=== PATIENT | male | born 1955 | race Caucasian/White ===

== ENCOUNTER 2018-01-21 00:30 | Inpatient (IN) ==
[2018-01-21] MEDS ORDERED: SOLU-Medrol 125 MG VIAL ONE (00:47)
[2018-01-21] MEDS ORDERED: DUONEB 0.5 MG/3 MG ONE (00:48)
[2018-01-21] MEDS ORDERED: SOLU-Medrol 125 MG VIAL IVP ONE ×2 (00:48→00:49)
[2018-01-21] MEDS ORDERED: DUONEB 0.5 MG/3 MG NEB ONE ×2 (00:49→00:51)
[2018-01-21] MEDS ORDERED: ROCEPHIN VIAL 1 GRAM IVP ONE (00:52)
--- NOTE | 2018-01-21 01:04 | DR.SOBA ---
HPI Time Seen Time Seen by Provider: 01/21/18 00:49 Primary Care Physician Primary Care Physician: NARESH HPI Comment HPI Comment: INCREASING SOB AND FEVER WITH COUGH TIMES 4 DAYS WORSE TODAY. Complaints Chief Complaint Doctors Comments: INCREASING SOB TIMES 4 DAYS. Chief Complaint:: SOB GOTTEN WORSE Reviewed Nurses Notes Reviewed: Yes Source History Provided: Patient and Family Member Mode of Arrival Mode of Arrival: Ambulatory Timing Onset of Chief Complaint: 01/17/18 Duration Duration: Days Context Onset:: At Rest and With Light Exertion PE Risk Factors:: None History of:: COPD Currently on:: Inhaled Bronchodilators Prehospital Care:: Inhaled B2 Modifying Factors Worsens:: Exertion and Lying Flat Improves:: Inhaler Associated Signs and Symptoms Associated Signs and Symptoms: Wheeze If Chest Pain Quality: Other (TIGHTNESS.) Location: Substernal If Cough Cough: Productive PMH PMH Past Medical History: Yes Past Medical History: COPD and Hypertension Past Surgical History: Yes Surgical History: Angioplasty/Stents Family History History of Family Medical Conditions: Yes Family Medical History: Hypertension Social History Type of Tobacco Use: Cigarettes Does any household member use tobacco: Yes Alcohol Use: None Do you use any recreational Drugs:: No Lives With: Family Lives Where: Home infectious screening In the last 2 months have you had wt loss of >10#?: NO Have you had fever, night sweats or hemotysis?: No Have you traveled outside the country in the last 6 months?: No Isolation: Standard ROS Review of Systems Constitutional: Fever, Weakness and Fatigue Eyes: No Symptoms Reported ENTM: No Symptoms Reported Respiratoy: Moist Cough and Short of Breath Cardiovascular: Chest Pain (TIGHTNESS.) Gastrointestinal/Abdominal: No Symptoms Reported Neurological: No Symptoms Reported Musculoskeletal: No Symptoms Reported Integumentary: No Symptoms Reported Hematologic/Lymphatic: No Symptoms Reported Endocrine: No Symptoms Reported Psychiatric: No Symptoms Reported All Other Systems: Reviewed and Negative PE Vital Signs Vitals: Temperature 99.7 F Pulse Rate [Left] 99 Pulse Rate 106 Respiratory Rate 26 Blood Pressure [Left Arm] 154/70 Blood Pressure 164/62 O2 Sat by Pulse Oximetry 93 General Limitations: No Limitations General Appearance: Alert and In Distress Head Head Exam: Normal Inspection, Atraumatic and Normocephalic Eyes Eye exam: PERRL and EOMI; negative Scleral Icterus and Conjunctival Injection ENT ENT Exam: Normal Exam, Normal Oropharynx, Normal External Ear Exam, Mucous Membranes Moist and TM's Normal Bilaterally Neck Neck Exam: Normal Inspection and Trachea Midline; negative Tenderness, Meningismus and Lymphadenopathy Chest Chest Inspection: Symmetric Chest Wall Rise Respiratory Respiratory Exam: Respiratory Distress Respiratory Exam: Bilateral: Wheezing and Bilateral: Rhonchi, Upper: Wheezing and Upper: Rhonchi and Lower: Wheezing and Lower: Rhonchi Cardiovascular Cardiovascular Exam: Regular Rate and Normal Rhythm Abdominal Exam Abdominal Exam: Normal Inspection, Normal Bowel Sounds and Soft; negative Tenderness Back Back Exam: Normal Inspection Neurologic Neurological Exam: Alert and Oriented X3; negative Motor Sensory Deficit Psychiatric Psychiatric Exam: Anxious Skin Skin Exam: Dry MDM Additional Information Obtained Additional Information Obtained From: Family Differential Diagnosis Differential Diagnosis: Bronchitis, CHF, COPD, Dysrhythmia, Hypertensive Emergency, Mycardial Infarction, Pneumonia, Pneumothorax, Respiratory Failure and Respiratory Insufficiency COURSE Treatment Treatment: SEE ORDERS. Consultation Consultation Comments: DISCUSS PATIENT WITH DR. INFANTE. HE WILL ADMIT PATIENT. Education/Counseling Education/Counseling: Patient and Family Educated On: Diagnosis ROR Labs Reviewed Laboratory Results Reviewed?: Yes Result Diagrams: 01/22/18 03:00 01/22/18 03:00 Laboratory: 01/21/18 01:33 Blood Blood Culture - Final 01/21/18 01:00 Blood Blood Culture - Final 01/21/18 01:00 Sputum - Expectorated Sputum Sputum Culture - Final Enterobacter Cloacae 01/21/18 01:00 Sputum - Expectorated Sputum - Final WBC 12.6 X10^3/uL (3.6-10.0) H 01/22/18 03:00 RBC 5.35 X10^6/uL (4.7-6.0) 01/22/18 03:00 Hgb 16.7 g/dL (13.5-18.0) 01/22/18 03:00 Hct 49.0 % (42.0-54.0) 01/22/18 03:00 MCV 91.6 fL (80.0-100.0) 01/22/18 03:00 MCH 31.2 pg (27.0-34.0) 01/22/18 03:00 MCHC 34.1 g/dL (33.0-35.0) 01/22/18 03:00 RDW 14.3 % (11.6-16.5) 01/22/18 03:00 Plt Count 209 X10^3/uL (150.0-450.0) 01/22/18 03:00 MPV 7.7 fL (7.4-11.0) 01/22/18 03:00 Neut % (Auto) 88.4 % (42.0-75.0) H 01/22/18 03:00 Lymph % (Auto) 5.8 % (21.0-51.0) L 01/22/18 03:00 [place] % (Auto) 5.6 % (0.0-13.0) 01/22/18 03:00 Eos % (Auto) 0.0 % (0.9-2.9) L 01/22/18 03:00 Baso % (Auto) 0.2 % (0.2-1.0) 01/22/18 03:00 Neut # (Auto) 11.1 x10^3/uL (2.2-4.8) H 01/22/18 03:00 Lymph # (Auto) 0.7 X10^3/uL (1.3-2.9) L 01/22/18 03:00 [place] # (Auto) 0.7 x10^3/uL (0.3-0.8) 01/22/18 03:00 Eos # (Auto) 0.0 x10^3/uL (0.0-0.2) 01/22/18 03:00 Baso # (Auto) 0.0 X10^3/uL (0.0-0.1) 01/22/18 03:00 Absolute Nucleated RBC 0.0 /100WBC 01/22/18 03:00 APTT 23.4 SECONDS (22.9-36.5) 01/22/18 08:37 PTT Comment - 01/22/18 08:37 Sodium 140 mmol/L (136-145) 01/22/18 03:00 Corrected Sodium 143 mmol/L (136-145) 01/22/18 03:00 Potassium 3.8 mmol/L (3.5-5.1) 01/22/18 03:00 Chloride 105 mmol/L (98-107) 01/22/18 03:00 Carbon Dioxide 27.6 mmol/L (21-32) 01/22/18 03:00 BUN 20 mg/dL (7-18) H 01/22/18 03:00 Creatinine 1.08 mg/dL (0.70-1.30) 01/22/18 03:00 Est GFR (MDRD) Af Amer > 60 (>60) 01/22/18 03:00 Est GFR (MDRD) Non-Af > 60 (>60) 01/22/18 03:00 Glucose 214 mg/dL (65-99) H 01/22/18 03:00 Lactic Acid 1.1 mmol/L (0.4-2.0) 01/21/18 01:33 Calcium 7.9 mg/dL (8.5-10.1) L 01/22/18 03:00 Corrected Calcium 8.7 mg/dL (8.5-10.1) 01/22/18 03:00 Magnesium 2.0 mg/dL (1.7-2.9) 01/21/18 01:00 Total Bilirubin 0.30 mg/dL (0.2-1.0) 01/22/18 03:00 AST 26 Units/L (15-37) 01/22/18 03:00 ALT 91 Units/L (12-78) H 01/22/18 03:00 Alkaline Phosphatase 64 Units/L (46-116) 01/22/18 03:00 Creatine Kinase 98 Units/L (39-308) 01/22/18 08:37 CK-MB (CK-2) 6.7 ng/mL (0-4.0) H* 01/22/18 08:37 CK/CKMB % Calc 6.8 % (<4) 01/22/18 08:37 Troponin I 0.88 ng/mL (0-1.5) 01/22/18 08:37 B-Natriuretic Peptide 154 pg/mL (0-79) H 01/21/18 01:00 Total Protein 6.0 g/dL (6.4-8.2) L 01/22/18 03:00 Albumin 3.0 g/dL (3.4-5.0) L 01/22/18 03:00 Globulin 3.0 g/dL (2.5-4.5) 01/22/18 03:00 Albumin/Globulin Ratio 1.0 Ratio (1.1-2.1) L 01/22/18 03:00 Specimen Type Clean catch urine 01/21/18 05:29 Urine Color Yellow (YELLOW) 01/21/18 05:29 Urine Appearance Slightly hazy (CLEAR) 01/21/18 05:29 Urine pH 5.0 (5.0 - 8.0) 01/21/18 05:29 Ur Specific [place] 1.020 (1.000-1.030) 01/21/18 05:29 Urine Protein 2+ (NEGATIVE) 01/21/18 05:29 Urine Glucose (UA) 3+ (NEGATIVE) 01/21/18 05:29 Urine Ketones Negative (NEGATIVE) 01/21/18 05:29 Urine Occult Blood 2+ (NEGATIVE) 01/21/18 05:29 Urine Nitrite Negative (NEGATIVE) 01/21/18 05:29 Urine Bilirubin Negative (NEGATIVE) 01/21/18 05:29 Urine Urobilinogen Normal (NORMAL) 01/21/18 05:29 Ur Leukocyte Esterase Negative (NEGATIVE) 01/21/18 05:29 Urine RBC 0-2 /HPF (NONE SEEN) 01/21/18 05:29 Urine WBC 0-2 /HPF (NONE SEEN) 01/21/18 05:29 Ur Squamous Epith Cells Rare /HPF (NEGATIVE) 01/21/18 05:29 Urine Bacteria Trace /HPF (NEGATIVE) 01/21/18 05:29 Hyaline Casts Rare /LPF (NEGATIVE) 01/21/18 05:29 Ur Culture Indicated? No/not indicated 01/21/18 05:29 XRAY XRAY Interpreted by: Radiologist XRAY Findings: REPORT DISCUSS WITH PATIENT. EKG Rate: 89 Rhythm: NSR Block: RBBB Hypertrophy: LAE and LVH
[2018-01-21] MEDS ORDERED: ROCEPHIN VIAL 1 GRAM ONE (01:06)
[2018-01-21 01:15] LABS: BASOPHILS # (AUTO) 0.1 X10^3/uL (0.0-0.1); BASOPHILS % (AUTO) 0.5 % (0.2-1.0); EOSINOPHILS # (AUTO) 0.1 x10^3/uL (0.0-0.2); EOSINOPHILS % (AUTO) 1.4 % (0.9-2.9); HEMATOCRIT 52.5 % (42.0-54.0); LYMPHOCYTES # (AUTO) 1.1 X10^3/uL (1.3-2.9); LYMPHOCYTES % (AUTO) 11.5 % (21.0-51.0); MEAN CORPUSCULAR HEMOGLOBIN 31.8 pg (27.0-34.0); MEAN CORPUSCULAR HGB CONC 34.3 g/dL (33.0-35.0); MEAN CORPUSCULAR VOLUME 92.8 fL (80.0-100.0); MEAN PLATELET VOLUME 7.4 fL (7.4-11.0); MONOCYTES # (AUTO) 1.1 x10^3/uL (0.3-0.8); MONOCYTES % (AUTO) 11.4 % (0.0-13.0); NEUTROPHILS # (AUTO) 7.2 x10^3/uL (2.2-4.8); NEUTROPHILS % (AUTO) 75.2 % (42.0-75.0); PLATELET COUNT 199 X10^3/uL (150.0-450.0); RED BLOOD COUNT 5.65 X10^6/uL (4.7-6.0); RED CELL DISTRIBUTION WIDTH 14.3 % (11.6-16.5); WHITE BLOOD COUNT 9.6 X10^3/uL (3.6-10.0)
[2018-01-21 01:36] LABS: BLOOD UREA NITROGEN 23 mg/dL (7-18); CALCIUM 8.2 mg/dL (8.5-10.1); CARBON DIOXIDE 28.6 mmol/L (21-32); CHLORIDE 104 mmol/L (98-107); COR NA(FOR HYPERGLY) 140 mmol/L (136-145); CREATININE 1.12 mg/dL (0.70-1.30); SODIUM 139 mmol/L (136-145); TROPONIN I 0.05 ng/mL (0-1.5); eGFR NON BLACK RACES > 60 (>60)
[2018-01-21 01:43] LABS: B-TYPE NATRIURETIC PEPTIDE 154 pg/mL (0-79)
[2018-01-21 01:52] LABS: ALANINE AMINOTRANSFERASE 157 Units/L (12-78); ALBUMIN 3.5 g/dL (3.4-5.0); ALKALINE PHOSPHATASE 72 Units/L (46-116); ASPARTATE AMINO TRANSFERASE 167 Units/L (15-37); CKMB % 1.4 % (<4); CREATINE KINASE 207 Units/L (39-308); CREATINE KINASE MB 2.8 ng/mL (0-4.0); TOTAL PROTEIN 6.7 g/dL (6.4-8.2)
[2018-01-21 03:44] LABS: CKMB % 1.5 % (<4); CREATINE KINASE MB 2.9 ng/mL (0-4.0); TROPONIN I 0.08 ng/mL (0-1.5)
[2018-01-21] MEDS: NS 1000 ML 1,000 ML IV SCH ×2 (05:05→20:47)
[2018-01-21] MEDS ORDERED: NICOTINE PATCH TD ONE (05:11)
[2018-01-21] MEDS: NICOTINE PATCH TD SCH ×2 (05:18→08:57)
[2018-01-21] MEDS: LEVAQUIN PREMIX IV 750 MG 750 MG/150 ML BAG IV SCH (05:18)
[2018-01-21 05:21] VITALS: BMI 29.9
[2018-01-21] MEDS: DUONEB 0.5 MG/3 MG NEB SCH ×5 (05:35→21:37)
[2018-01-21 06:13] LABS: BILIRUBIN,URINE NEGATIVE (NEGATIVE); BLOOD/HEMOGLOBIN,URINE 2+ (NEGATIVE); GLUCOSE, URINE 3+ (NEGATIVE); KETONES,URINE NEGATIVE (NEGATIVE); LEUKOCYTE ESTERASE ,URINE NEGATIVE (NEGATIVE); NITRITES,URINE NEGATIVE (NEGATIVE); PROTEIN,URINE 2+ (NEGATIVE); UROBILINOGEN,URINE NORMAL (NORMAL)
[2018-01-21 06:20] LABS: APPEARANCE,URINE SLIGHTLY HAZY (CLEAR); BACTERIA,URINE TRACE /HPF (NEGATIVE); COLOR,URINE YELLOW (YELLOW); HYALINE CASTS, URINE RARE /LPF (NEGATIVE); RBC,URINE 0-2 /HPF (NONE SEEN); SQUAMOUS EPITHELIAL CELL,UR RARE /HPF (NEGATIVE)
[2018-01-21] MEDS ORDERED: SOLU-Medrol 40 MG VIAL IVP SCH (08:00)
[2018-01-21] MEDS: ROBITUSSIN DM PO SCH ×4 (08:57→20:47)
[2018-01-21] MEDS: TUSSIONEX PENNKINETIC SUSP PO PRN ×2 (08:57→20:48)
[2018-01-21] MEDS: ASPIRIN EC 81 MG PO SCH (08:57)
[2018-01-21] MEDS ORDERED: ZESTRIL TAB 5 MG PO SCH (09:00)
[2018-01-21 10:47] LABS: CKMB % 2.2 % (<4); TROPONIN I 0.07 ng/mL (0-1.5)
--- NOTE | 2018-01-21 13:58 | DR.H&P ---
H&P - History & Physical for Day of: H&P Date: 01/21/18 - Chief Complaint Chief Complaint: sob, cough, wheezing - History of Present Illness History of Present Illness: 62 WM ER ADMISSION AFTER PRESENTING WITH CO CCC SINCE SATURDAY WITH SUDDEN ONSET OF SEVERE SOB AROUND MIDNIGHT. PT STATES HE HAD ROCEPHIN IM AND DECADRON SHOT ON SATURDAY AND STARTED A ZPAK FOR BRONCHITIS AND CONTINUES WITH COUGH AND WHEEZING. PT STATES HE TOOK HOT SHOWER AND BECAME FOR TIGHT, "COULD NOT CATCH HIS BREATH". PT HAS PMH OF HTN, COPD, CAD, OA. PT HAD CXR IN ER WITH MULTI-FOCAL PNEUMONIA. PT ADMITTED FOR TREATMENT OF ACUTE SHORTNESS OF BREATH, SERIAL CE AND IV ATBS FOR PNEUMONIA - Past Medical History Past Medical History: COPD, Coronary Artery Disease, Hypertension - Past Surgical History Surgical History: AAA Repair - Family History Family Medical History: Hypertension - Social History Does patient currently use any type of tobacco product: Yes Have you used tobacco products in the last 12 months: Yes Type of Tobacco Use: Cigarettes Does any household member use tobacco: Yes Alcohol Use: None Drug Use: None - Medications Home Medications: No Known Drug Allergies Allergy (Verified 01/21/18 00:38) CONTINUE taking the following medications lisinopril 5 mg PO QDAY 01/21/18 [History] - Review of Systems Constitutional: Fever, Chills, Sweats, Weakness Eyes: No Symptoms Reported Respiratory: No Symptoms Reported, Shortness of Breath, Sputum, Wheezing Cardiovascular: Palpitations Gastrointestinal: No Symptoms Reported Genitourinary: No Symptoms Reported Musculoskeletal: No Symptoms Reported Skin: No Symptoms Reported Neurological: No Symptoms Reported - Physical Exam Vital Signs: Temperature 98.6 F Pulse Rate [Left] 89 Pulse Rate 112 Respiratory Rate 22 Blood Pressure [Left Arm] 164/62 Blood Pressure 164/62 O2 Sat by Pulse Oximetry 98 Oriented: Normal Eyes: Normal Nose: Normal Throat: Normal Respiratory: Rhonchi Throughout, Wheezes Throughout Cardiovascular: Tachycardia. negative: Edema : Normal Auscultation: Bowel Sounds: Normal Palpation: Normal Tenderness: Normal Skin: Normal Psychiatric: Anxiety Affect: Anxious Speech Pattern: Clear, Appropriate - Assessment/Plan (1) SOB (shortness of breath) Status: Acute Plan: ADMIT, SERIAL CE AND EKG. CXR ON ADMISSION. IV ATBX, SOLU MEDROL, SUPPLEMENTAL O2. RESP THERAPY, PULMONARY TOILETING. REPEAT AM LABS, VERIFY HOME MEDS, BP CONTROL (2) Pneumonia Status: Acute (3) Hypertension Status: Acute - Allergies Allergies/Adverse Reactions: Allergies Allergy/AdvReac Type Severity Reaction Status Date / Time No Known Drug Allergies Allergy Verified 01/21/18 00:38
[2018-01-21] MEDS: SOLU-Medrol 40 MG VIAL IVP SCH ×2 (14:57→21:12)
[2018-01-21] MEDS ORDERED: XANAX PO PRN (17:19)
[2018-01-21 18:35] LABS: TROPONIN I 0.37 ng/mL (0-1.5)
[2018-01-21 18:43] LABS: CREATINE KINASE MB 4.5 ng/mL (0-4.0)
[2018-01-21] MEDS: NORVASC TAB 5 MG PO SCH (18:46)
[2018-01-21] MEDS ORDERED: NS 100 ML IV + SPIKE MINIBAG* 100 ML IV ONE (19:57)
[2018-01-21] MEDS ORDERED: ROCEPHIN VIAL 1 GRAM IVP SCH (21:00)
[2018-01-21 21:41] LABS: CKMB % 5.5 % (<4); TROPONIN I 0.78 ng/mL (0-1.5)
[2018-01-22] MEDS: DUONEB 0.5 MG/3 MG NEB SCH ×3 (01:21→10:15)
[2018-01-22 03:16] LABS: BASOPHILS % (AUTO) 0.2 % (0.2-1.0); HEMOGLOBIN 16.7 g/dL (13.5-18.0); LYMPHOCYTES # (AUTO) 0.7 X10^3/uL (1.3-2.9); LYMPHOCYTES % (AUTO) 5.8 % (21.0-51.0); MEAN CORPUSCULAR HEMOGLOBIN 31.2 pg (27.0-34.0); MEAN CORPUSCULAR HGB CONC 34.1 g/dL (33.0-35.0); MEAN CORPUSCULAR VOLUME 91.6 fL (80.0-100.0); MEAN PLATELET VOLUME 7.7 fL (7.4-11.0); MONOCYTES # (AUTO) 0.7 x10^3/uL (0.3-0.8); MONOCYTES % (AUTO) 5.6 % (0.0-13.0); NEUTROPHILS # (AUTO) 11.1 x10^3/uL (2.2-4.8); NEUTROPHILS % (AUTO) 88.4 % (42.0-75.0); PLATELET COUNT 209 X10^3/uL (150.0-450.0); RED BLOOD COUNT 5.35 X10^6/uL (4.7-6.0); RED CELL DISTRIBUTION WIDTH 14.3 % (11.6-16.5); WHITE BLOOD COUNT 12.6 X10^3/uL (3.6-10.0)
[2018-01-22 03:55] LABS: ALANINE AMINOTRANSFERASE 91 Units/L (12-78); ALKALINE PHOSPHATASE 64 Units/L (46-116); ASPARTATE AMINO TRANSFERASE 26 Units/L (15-37); BLOOD UREA NITROGEN 20 mg/dL (7-18); CALCIUM 7.9 mg/dL (8.5-10.1); CARBON DIOXIDE 27.6 mmol/L (21-32); CHLORIDE 105 mmol/L (98-107); CKMB % 8.3 % (<4); COR CA(FOR HYPOALB) 8.7 mg/dL (8.5-10.1); COR NA(FOR HYPERGLY) 143 mmol/L (136-145); CREATINE KINASE 89 Units/L (39-308); CREATININE 1.08 mg/dL (0.70-1.30); SODIUM 140 mmol/L (136-145); TROPONIN I 1.13 ng/mL (0-1.5); eGFR NON BLACK RACES > 60 (>60)
[2018-01-22 04:02] LABS: CREATINE KINASE MB 7.4 ng/mL (0-4.0)
[2018-01-22] MEDS: SOLU-Medrol 40 MG VIAL IVP SCH (06:06)
[2018-01-22] MEDS: NS 1000 ML 1,000 ML IV SCH (06:07)
[2018-01-22] MEDS ORDERED: HEPARIN SODIUM IN D5W 25,000 UNITS/500 ML BAG IV PRN (08:28)
[2018-01-22] MEDS: LEVAQUIN PREMIX IV 750 MG 750 MG/150 ML BAG IV SCH (08:40)
[2018-01-22] MEDS: NORVASC TAB 5 MG PO SCH (08:41)
[2018-01-22] MEDS: ROBITUSSIN DM PO SCH (08:41)
[2018-01-22] MEDS: ASPIRIN EC 81 MG PO SCH (08:41)
[2018-01-22] MEDS: TUSSIONEX PENNKINETIC SUSP PO PRN (08:42)
[2018-01-22] MEDS ORDERED: BROVANA IN SCH (09:00)
[2018-01-22] MEDS ORDERED: ECOTRIN TAB 325 MG PO SCH (09:00)
[2018-01-22] MEDS ORDERED: PLAVIX PO SCH (09:00)
[2018-01-22] MEDS ORDERED: PULMICORT NEB TX 0.5 MG NEB SCH (09:00)
[2018-01-22] MEDS ORDERED: HEPARIN SODIUM INJ 5000 UNITS IVP ONE (09:42)
[2018-01-22 09:50] LABS: CKMB % 6.8 % (<4); TROPONIN I 0.88 ng/mL (0-1.5)
[2018-01-22] MEDS: NICOTINE PATCH TD SCH (09:50)
[2018-01-22 09:52] LABS: CREATINE KINASE MB 6.7 ng/mL (0-4.0)
[2018-01-22 12:14] VITALS: BP 154/70
--- NOTE | 2018-01-24 06:10 | PCM.DCPLAN ---
Discharge Summary - Admission Date Date of Admission: 01/21/18 - Discharge Date Discharge Date: 01/22/18 - Admission Diagnoses (1) Elevated CK-MB level Status: Acute (2) Hypertension Status: Acute (3) Pneumonia Status: Acute (4) SOB (shortness of breath) Status: Acute - Discharge Diagnoses Discharge Diagnosis: SAME ADMISSION DIAGNOSIS - Discharge Medications Discharge Medications: Home Medication List lisinopril 5 mg PO QDAY 01/21/18 [History] Prescriptions: - Hospital Course Vital Signs: Temperature 99.7 F Pulse Rate [Left] 99 Pulse Rate 106 Respiratory Rate 26 Blood Pressure [Left Arm] 154/70 Blood Pressure 164/62 O2 Sat by Pulse Oximetry 93 Latest Lab Results: Laboratory Last Values WBC 12.6 X10^3/uL (3.6-10.0) H 01/22/18 03:00 RBC 5.35 X10^6/uL (4.7-6.0) 01/22/18 03:00 Hgb 16.7 g/dL (13.5-18.0) 01/22/18 03:00 Hct 49.0 % (42.0-54.0) 01/22/18 03:00 MCV 91.6 fL (80.0-100.0) 01/22/18 03:00 MCH 31.2 pg (27.0-34.0) 01/22/18 03:00 MCHC 34.1 g/dL (33.0-35.0) 01/22/18 03:00 RDW 14.3 % (11.6-16.5) 01/22/18 03:00 Plt Count 209 X10^3/uL (150.0-450.0) 01/22/18 03:00 MPV 7.7 fL (7.4-11.0) 01/22/18 03:00 Neut % (Auto) 88.4 % (42.0-75.0) H 01/22/18 03:00 Lymph % (Auto) 5.8 % (21.0-51.0) L 01/22/18 03:00 [place] % (Auto) 5.6 % (0.0-13.0) 01/22/18 03:00 Eos % (Auto) 0.0 % (0.9-2.9) L 01/22/18 03:00 Baso % (Auto) 0.2 % (0.2-1.0) 01/22/18 03:00 Neut # (Auto) 11.1 x10^3/uL (2.2-4.8) H 01/22/18 03:00 Lymph # (Auto) 0.7 X10^3/uL (1.3-2.9) L 01/22/18 03:00 [place] # (Auto) 0.7 x10^3/uL (0.3-0.8) 01/22/18 03:00 Eos # (Auto) 0.0 x10^3/uL (0.0-0.2) 01/22/18 03:00 Baso # (Auto) 0.0 X10^3/uL (0.0-0.1) 01/22/18 03:00 Absolute Nucleated RBC 0.0 /100WBC 01/22/18 03:00 APTT 23.4 SECONDS (22.9-36.5) 01/22/18 08:37 PTT Comment - 01/22/18 08:37 Sodium 140 mmol/L (136-145) 01/22/18 03:00 Corrected Sodium 143 mmol/L (136-145) 01/22/18 03:00 Potassium 3.8 mmol/L (3.5-5.1) 01/22/18 03:00 Chloride 105 mmol/L (98-107) 01/22/18 03:00 Carbon Dioxide 27.6 mmol/L (21-32) 01/22/18 03:00 BUN 20 mg/dL (7-18) H 01/22/18 03:00 Creatinine 1.08 mg/dL (0.70-1.30) 01/22/18 03:00 Est GFR (MDRD) Af Amer > 60 (>60) 01/22/18 03:00 Est GFR (MDRD) Non-Af > 60 (>60) 01/22/18 03:00 Glucose 214 mg/dL (65-99) H 01/22/18 03:00 Lactic Acid 1.1 mmol/L (0.4-2.0) 01/21/18 01:33 Calcium 7.9 mg/dL (8.5-10.1) L 01/22/18 03:00 Corrected Calcium 8.7 mg/dL (8.5-10.1) 01/22/18 03:00 Magnesium 2.0 mg/dL (1.7-2.9) 01/21/18 01:00 Total Bilirubin 0.30 mg/dL (0.2-1.0) 01/22/18 03:00 AST 26 Units/L (15-37) 01/22/18 03:00 ALT 91 Units/L (12-78) H 01/22/18 03:00 Alkaline Phosphatase 64 Units/L (46-116) 01/22/18 03:00 Creatine Kinase 98 Units/L (39-308) 01/22/18 08:37 CK-MB (CK-2) 6.7 ng/mL (0-4.0) H* 01/22/18 08:37 CK/CKMB % Calc 6.8 % (<4) 01/22/18 08:37 Troponin I 0.88 ng/mL (0-1.5) 01/22/18 08:37 B-Natriuretic Peptide 154 pg/mL (0-79) H 01/21/18 01:00 Total Protein 6.0 g/dL (6.4-8.2) L 01/22/18 03:00 Albumin 3.0 g/dL (3.4-5.0) L 01/22/18 03:00 Globulin 3.0 g/dL (2.5-4.5) 01/22/18 03:00 Albumin/Globulin Ratio 1.0 Ratio (1.1-2.1) L 01/22/18 03:00 Specimen Type Clean catch urine 01/21/18 05:29 Urine Color Yellow (YELLOW) 01/21/18 05:29 Urine Appearance Slightly hazy (CLEAR) 01/21/18 05:29 Urine pH 5.0 (5.0 - 8.0) 01/21/18 05:29 Ur Specific [place] 1.020 (1.000-1.030) 01/21/18 05:29 Urine Protein 2+ (NEGATIVE) 01/21/18 05:29 Urine Glucose (UA) 3+ (NEGATIVE) 01/21/18 05:29 Urine Ketones Negative (NEGATIVE) 01/21/18 05:29 Urine Occult Blood 2+ (NEGATIVE) 01/21/18 05: Urine Nitrite Negative (NEGATIVE) 01/21/18 05:29 Urine Bilirubin Negative (NEGATIVE) 01/21/18 05:29 Urine Urobilinogen Normal (NORMAL) 01/21/18 05:29 Ur Leukocyte Esterase Negative (NEGATIVE) 01/21/18 05:29 Urine RBC 0-2 /HPF (NONE SEEN) 01/21/18 05:29 Urine WBC 0-2 /HPF (NONE SEEN) 01/21/18 05:29 Ur Squamous Epith Cells Rare /HPF (NEGATIVE) 01/21/18 05:29 Urine Bacteria Trace /HPF (NEGATIVE) 01/21/18 05:29 Hyaline Casts Rare /LPF (NEGATIVE) 01/21/18 05:29 Ur Culture Indicated? No/not indicated 01/21/18 05:29 Hospital Course: 62 WM ER ADMISSION AFTER PRESENTING WITH CO CCC SINCE SATURDAY WITH SUDDEN ONSET OF SEVERE SOB AROUND MIDNIGHT. PT STATES HE HAD ROCEPHIN IM AND DECADRON SHOT ON SATURDAY AND STARTED A ZPAK FOR BRONCHITIS AND CONTINUES WITH COUGH AND WHEEZING. PT STATES HE TOOK HOT SHOWER AND BECAME TIGHT, "COULD NOT CATCH HIS BREATH". PT HAS PMH OF HTN, COPD, CAD, OA. PT HAD CXR IN ER WITH MULTI-FOCAL PNEUMONIA. PT ADMITTED FOR TREATMENT OF ACUTE SHORTNESS OF BREATH, SERIAL CE AND IV ATBS FOR PNEUMONIA. PATIENT NOTED TO HAVE TRENDING ELEVATION OF TROPONIN AND CKMB. PATIENT WAS TRANSFERRED TO [facility] FOR FURTHER WORK UP. - Discharge Plan Disposition: XF [facility] Condition: Stable - Follow ups/Referrals Follow ups/Referrals: PAYTON INFANTE [Primary Care Provider] - 3 days - Instructions
== END 2018-01-22 12:45 | disposition short-term general hospital (02) | DRG 178 ==
LOC: ER 00:36 → MED/SURG 04:21 → ICU 01-22 08:45
PROVIDERS: ADMIT Internal Medicine; ATTEND Internal Medicine
DX: J15.6 Pneumonia due to other Gram-negative bacteria; R06.03 Acute respiratory distress; Z86.79 Personal history of other diseases of the circulatory system; I10 Essential (primary) hypertension; M19.90 Unspecified osteoarthritis, unspecified site; J44.1 Chronic obstructive pulmonary disease with (acute) exacerbation
CPT/HCPCS: 36415; 71010; 71045; 80053; 81001; 82550; 82553; 83605; 83735; 83880; 84484; 85025; 85730; 87040; 87070; 87077; 87186; 87205; 93005; 93010; 94640; 94760; 96365; 96374; 96375; 99283; 99284; 99285; A4222; J0696; J1644; J1956; J2920; J2930; J7030; J7050; J7620

== ENCOUNTER 2020-06-06 09:14 | Observation (INO) ==
[2020-06-06] MEDS ORDERED: MORPHINE SULFATE INJ 2 MG INJ IVP PRN (10:17)
[2020-06-06] MEDS ORDERED: NITROSTAT SL PRN (10:17)
--- NOTE | 2020-06-06 11:01 | RAD ---
HISTORYCHEST PAINSTUDYCHEST, PA/LAT ADULTCOMPARISONNoneFINDINGSThe trachea is midline. The cardiac silhouette is unremarkable. There is a trace right pleural effusion with blunting of the costo diaphragmatic angle. There is a prosthetic aortic valve. No evidence of pulmonary edema, no focal pneumoniaIMPRESSIONTrace right pleural effusion. No pulmonary edema. Mild atelectasis at the basesElectronically signed by: Janneth Angela (Jun 06, 2020 10:59:06)
[2020-06-06 11:34] LABS: BASOPHILS # (AUTO) 0.1 X10^3/uL (0.0-0.1); BASOPHILS % (AUTO) 1.1 % (0.2-1.0); EOSINOPHILS # (AUTO) 0.4 x10^3/uL (0.0-0.2); HEMATOCRIT 49.2 % (42.0-54.0); HEMOGLOBIN 16.6 g/dL (13.5-18.0); LYMPHOCYTES # (AUTO) 1.8 X10^3/uL (1.3-2.9); LYMPHOCYTES % (AUTO) 19.3 % (21.0-51.0); MEAN CORPUSCULAR HEMOGLOBIN 30.3 pg (27.0-34.0); MEAN CORPUSCULAR HGB CONC 33.7 g/dL (33.0-35.0); MEAN CORPUSCULAR VOLUME 89.9 fL (80.0-100.0); MONOCYTES # (AUTO) 1.1 x10^3/uL (0.3-0.8); MONOCYTES % (AUTO) 11.6 % (0.0-13.0); NEUTROPHILS # (AUTO) 6.1 x10^3/uL (2.2-4.8); PLATELET COUNT 241 X10^3/uL (150.0-450.0); RED BLOOD COUNT 5.47 X10^6/uL (4.7-6.0); RED CELL DISTRIBUTION WIDTH 14.8 % (11.6-16.5); WHITE BLOOD COUNT 9.5 X10^3/uL (3.6-10.0)
[2020-06-06 11:40] VITALS: BMI 32.5
[2020-06-06 11:54] LABS: BLOOD UREA NITROGEN 35 mg/dL (7-18); CARBON DIOXIDE 26.2 mmol/L (21-32); CHLORIDE 104 mmol/L (98-107); COR NA(FOR HYPERGLY) 139 mmol/L (136-145); CREATININE 1.41 mg/dL (0.70-1.30); SODIUM 139 mmol/L (136-145); TROPONIN I 0.02 ng/mL (0-1.5); eGFR NON BLACK RACES 54 (>60)
[2020-06-06 12:17] LABS: ALANINE AMINOTRANSFERASE 51 Units/L (12-78); ALBUMIN 3.8 g/dL (3.4-5.0); ALKALINE PHOSPHATASE 68 Units/L (46-116); ASPARTATE AMINO TRANSFERASE 25 Units/L (15-37); CKMB % 4.4 % (<4); CREATINE KINASE 112 Units/L (39-308); MAGNESIUM 1.9 mg/dL (1.7-2.9); TOTAL PROTEIN 6.9 g/dL (6.4-8.2)
[2020-06-06 12:28] LABS: CREATINE KINASE MB 4.9 ng/mL (0-4.0)
[2020-06-06] MEDS ORDERED: NS 1000 ML 1,000 ML IV SCH (14:00)
[2020-06-06] MEDS ORDERED: ASPIRIN EC 81 MG PO SCH (14:00)
[2020-06-06 17:14] LABS: CKMB % 4.1 % (<4); CREATINE KINASE 96 Units/L (39-308); TROPONIN I < 0.02 ng/mL (0-1.5)
[2020-06-06 17:15] LABS: CREATINE KINASE MB 3.9 ng/mL (0-4.0)
--- NOTE | 2020-06-06 17:43 | DR.H&P ---
H&P - History & Physical for Day of: H&P Date: 06/06/20 - Chief Complaint Chief Complaint: chest pain - History of Present Illness History of Present Illness: PT IS 64 WM DIRECT ADMIT FROM DR AMILCAR CHOE WITH CO CHEST PAIN EPISODE X2. PT HAS PMH OF HEART VALVE DISEASE WITH AORTIC VALVE REPLACEMENT IN 2018. PT HAS PMH OF HTN AND OA. PT HAD COVID EARLIER IN [place]. PT CO LOWER LEG SWELLING, IMPROVES WITH INCREASED LASIX, BUT RETURNS WITHIN 24 HRS. PT ADMITTED FOR TREATMENT AND EVALUATION OF ACUTE ILLNESS. - Past Medical History Past Medical History: COPD, Coronary Artery Disease, Hypertension - Past Surgical History Surgical History: AAA Repair - Family History Family Medical History: Hypertension - Social History Does patient currently use any type of tobacco product: No (quit 2 1/2 years ago) Have you used tobacco products in the last 12 months: No Type of Tobacco Use: None Does any household member use tobacco: No Alcohol Use: None Drug Use: None - Medications Home Medications: No Known Drug Allergies Allergy (Verified 01/21/18 00:38) CONTINUE taking the following medications amlodipine 5 mg PO DAILY 06/06/20 [History] aspirin 81 mg PO DAILY 06/06/20 [History] atorvastatin 80 mg PO HS 06/06/20 [History] losartan 100 mg PO DAILY 06/06/20 [History] meloxicam 15 mg PO DAILY 06/06/20 [History] metoprolol succinate 12.5 mg PO HS 06/06/20 [History] potassium chloride 20 meq PO DAILY 06/06/20 [History] torsemide 20 mg PO DAILY 06/06/20 [History] venlafaxine 37.5 mg PO HS 06/06/20 [History] - Review of Systems Constitutional: No Symptoms Reported Eyes: No Symptoms Reported ENT: No Symptoms Reported Respiratory: Shortness of Breath Cardiovascular: Chest Pain, Edema Gastrointestinal: No Symptoms Reported Genitourinary: No Symptoms Reported Musculoskeletal: No Symptoms Reported Skin: No Symptoms Reported Neurological: No Symptoms Reported - Physical Exam Vital Signs: Temperature 98.8 F Pulse Rate [Right] 73 Respiratory Rate 22 Blood Pressure [Right Arm] 131/66 Blood Pressure [Left Arm] 154/70 Blood Pressure 154/70 O2 Sat by Pulse Oximetry 97 Oriented: Normal Eyes: Normal Ear: Normal Nose: Normal Throat: Normal Respiratory: RLL Diminished, LLL Diminished Cardiovascular: Normal, Edema : Normal Auscultation: Bowel Sounds: Normal Palpation: Normal Tenderness: Normal Skin: Normal Musculoskeletal: Normal Mood Description: Calm Affect: Depressed Speech Pattern: Appropriate - Assessment/Plan (1) Chest pain Status: Acute Plan: ADMIT, SERIAL CE AND EKG. BP CONTROL, PRN SUPPLEMENTAL O2. VERIFY AND RESUME HOME MEDICATION. LOVENOX, ARRANGE FOR TRANSFER FOR CARDIAC EVALUATION (2) Heart valve disease Status: Acute (3) SOB (shortness of breath) Status: Acute (4) Hypertension Status: Acute - Allergies Allergies/Adverse Reactions: Allergies Allergy/AdvReac Type Severity Reaction Status Date / Time No Known Drug Allergies Allergy Verified 01/21/18 00:38
[2020-06-06 19:09] LABS: CKMB % 3.7 % (<4); CREATINE KINASE 96 Units/L (39-308); CREATINE KINASE MB 3.5 ng/mL (0-4.0); TROPONIN I < 0.02 ng/mL (0-1.5)
[2020-06-06 19:42] LABS: BILIRUBIN,URINE NEGATIVE (NEGATIVE); BLOOD/HEMOGLOBIN,URINE NEGATIVE (NEGATIVE); GLUCOSE, URINE NEGATIVE (NEGATIVE); KETONES,URINE NEGATIVE (NEGATIVE); LEUKOCYTE ESTERASE ,URINE NEGATIVE (NEGATIVE); NITRITES,URINE NEGATIVE (NEGATIVE); PROTEIN,URINE NEGATIVE (NEGATIVE); UROBILINOGEN,URINE NORMAL (NORMAL)
[2020-06-06 19:45] LABS: APPEARANCE,URINE CLEAR (CLEAR); COLOR,URINE YELLOW (YELLOW)
[2020-06-06] MEDS ORDERED: TOPROL XL PO SCH (21:00)
[2020-06-06] MEDS ORDERED: LIPITOR TAB 80 MG PO SCH (21:00)
[2020-06-06] MEDS: LOVENOX INJ 30 MG SYR SC SCH (21:20)
[2020-06-06 23:14] LABS: CKMB % 3.5 % (<4); CREATINE KINASE 82 Units/L (39-308); CREATINE KINASE MB 2.9 ng/mL (0-4.0); TROPONIN I < 0.02 ng/mL (0-1.5)
[2020-06-07 06:07] LABS: CHOL/HDL RATIO 3.3 (0.0-5.0)
[2020-06-07 07:10] LABS: BASOPHILS # (AUTO) 0.1 X10^3/uL (0.0-0.1); BASOPHILS % (AUTO) 0.7 % (0.2-1.0); EOSINOPHILS # (AUTO) 0.4 x10^3/uL (0.0-0.2); EOSINOPHILS % (AUTO) 4.5 % (0.9-2.9); HEMATOCRIT 45.9 % (42.0-54.0); HEMOGLOBIN 15.5 g/dL (13.5-18.0); LYMPHOCYTES % (AUTO) 24.7 % (21.0-51.0); MEAN CORPUSCULAR HEMOGLOBIN 30.6 pg (27.0-34.0); MEAN CORPUSCULAR HGB CONC 33.8 g/dL (33.0-35.0); MEAN CORPUSCULAR VOLUME 90.5 fL (80.0-100.0); MEAN PLATELET VOLUME 7.4 fL (7.4-11.0); MONOCYTES # (AUTO) 0.9 x10^3/uL (0.3-0.8); MONOCYTES % (AUTO) 10.6 % (0.0-13.0); NEUTROPHILS # (AUTO) 4.9 x10^3/uL (2.2-4.8); NEUTROPHILS % (AUTO) 59.5 % (42.0-75.0); PLATELET COUNT 204 X10^3/uL (150.0-450.0); RED BLOOD COUNT 5.07 X10^6/uL (4.7-6.0); RED CELL DISTRIBUTION WIDTH 14.9 % (11.6-16.5); WHITE BLOOD COUNT 8.3 X10^3/uL (3.6-10.0)
[2020-06-07 07:22] LABS: ALANINE AMINOTRANSFERASE 46 Units/L (12-78); ALBUMIN 3.2 g/dL (3.4-5.0); ALKALINE PHOSPHATASE 61 Units/L (46-116); ASPARTATE AMINO TRANSFERASE 23 Units/L (15-37); BLOOD UREA NITROGEN 30 mg/dL (7-18); CALCIUM 8.7 mg/dL (8.5-10.1); CARBON DIOXIDE 23.5 mmol/L (21-32); CHLORIDE 107 mmol/L (98-107); COR CA(FOR HYPOALB) 9.3 mg/dL (8.5-10.1); COR NA(FOR HYPERGLY) 143 mmol/L (136-145); CREATININE 1.18 mg/dL (0.70-1.30); SODIUM 143 mmol/L (136-145); eGFR NON BLACK RACES > 60 (>60)
[2020-06-07] MEDS ORDERED: K-DUR TAB 20 MEQ PO SCH (09:00)
[2020-06-07] MEDS ORDERED: DEMADEX PO SCH (09:00)
[2020-06-07] MEDS ORDERED: PROTONIX INJ 40 MG VIAL IVP SCH (09:00)
[2020-06-07] MEDS ORDERED: ASPIRIN PO SCH (09:00)
[2020-06-07] MEDS ORDERED: NORVASC TAB 5 MG PO SCH (09:00)
[2020-06-07] MEDS: LOVENOX INJ 30 MG SYR SC SCH (09:26)
[2020-06-07 16:16] VITALS: BP 137/72
== END 2020-06-07 18:50 | disposition short-term general hospital (02) ==
LOC: MED/SURG
PROVIDERS: ADMIT Internal Medicine; ATTEND Internal Medicine
DX: Z86.16 Personal history of COVID-19; R06.02 Shortness of breath; Z87.898 Personal history of other specified conditions; I10 Essential (primary) hypertension; R60.0 Localized edema; K21.9 Gastro-esophageal reflux disease without esophagitis; I25.810 Atherosclerosis of coronary artery bypass graft(s) without angina pectoris; M19.90 Unspecified osteoarthritis, unspecified site; R07.89 Other chest pain; I35.8 Other nonrheumatic aortic valve disorders; J44.9 Chronic obstructive pulmonary disease, unspecified; Z20.822 Contact with and (suspected) exposure to COVID-19; E78.5 Hyperlipidemia, unspecified